=== PATIENT | male | born 1975 | race Caucasian/White ===

== ENCOUNTER 2022-02-27 14:35 | Outpatient (CLI) | payer OTHER, SELFPAY ==
[2022-02-27 17:43] LABS: Chloride* 99 mmol/L (96-114); Potassium* 4.7 mmol/L (3.6-5.1); Sodium* 138 mmol/L (135-149)
[2022-02-27 17:46] LABS: Blood Urea Nitrogen* 17 mg/dL (5-24); Calcium* 10.1 mg/dL (8.4-10.6); Carbon Dioxide* 29 mmol/L (20-32); Creatinine* 0.8 mg/dL (0.5-1.5); Estimated Glomerular Filt Rate 110 ml/min; Glucose* 91 mg/dL (60-115)
== END 2022-02-27 14:36 | disposition home or self-care (01) ==
PROVIDERS: PCP Family Medicine; Visit Provider Family Medicine
DX: Z01.818 Encounter for other preprocedural examination (principal); Z86.14 Personal history of Methicillin resistant Staphylococcus aureus infection
CPT/HCPCS: 80048; 87081

== ENCOUNTER 2022-07-19 19:27 | Outpatient (CLI) | payer OTHER, SELFPAY ==
--- NOTE | 2022-08-01 12:29 | P.SLS_ITS ---
Sleep Study Details Details Interpreting Provider: Jennifer Date of Sleep Study: 07/19/22 Sleep Study Details: STUDY TYPE:? Home ? BMI:? 31.2 ORDERING PROVIDER:Lauren Rodriguez INDICATION:? Concerns about sleep apnea ? SLEEP SUMMARY:? 371 minutes monitored RESPIRATORY SUMMARY:? AHI 25.4, supine 27.7, right lateral 8.3 Low oxygen 73 25.5% of study oxygen less than 90% Snoring 9.3% PERIODIC LIMB MOVEMENTS OF SLEEP:? Not measured CARDIAC:? Range 55-117, mean 77.3 beats per minute IMPRESSION:? Moderate obstructive sleep apnea with supine position dependency bu t apnea present in all positions RECOMMENDATION: Treatment options include AutoSet CPAP pressure 4-17 or dental appliance.
== END 2022-07-19 19:28 | disposition home or self-care (01) ==
LOC: SLEEP 19:28
PROVIDERS: PCP Family Medicine; Visit Provider Family Medicine
DX: G47.33 Obstructive sleep apnea (adult) (pediatric) (principal)
CPT/HCPCS: 95806

== ENCOUNTER 2023-03-06 15:07 | Outpatient (CLI) | payer OTHER, SELFPAY | END 2023-03-06 15:08 | disposition home or self-care (01) | LOC: LKVREF 15:08 | PROVIDERS: PCP Family Medicine; Visit Provider Family Medicine | DX: E78.2 Mixed hyperlipidemia (principal) | CPT/HCPCS: 80061 ==

== ENCOUNTER 2023-12-27 08:39 | Outpatient (CLI) | payer OTHER, SELFPAY ==
--- NOTE | 2023-12-27 09:34 | W.ANESCHARGE ---
Anesthesia Charges Start Date/Time Anesthesia Start Date: 12/27/23 Anesthesia Start Time: 09:57 Stop Date/Time Anesthesia Stop Date: 12/27/23 Anesthesia Stop Time: 10:21
--- NOTE | 2023-12-27 10:30 | W.ANESCHARGE ---
Anesthesia Charges Start Date/Time Anesthesia Start Date: 12/27/23 Anesthesia Start Time: 09:57 Stop Date/Time Anesthesia Stop Date: 12/27/23 Anesthesia Stop Time: 10:21
== END 2023-12-27 08:40 | disposition home or self-care (01) ==
LOC: OP CLINIC 08:40
PROVIDERS: PCP Family Medicine; Visit Provider Surgery
DX: Z12.11 Encounter for screening for malignant neoplasm of colon (principal)
CPT/HCPCS: 00811; 00812; 45378; J2704

== ENCOUNTER 2024-08-12 14:04 | Outpatient (CLI) | payer OTHER, SELFPAY | END 2024-08-12 14:05 | disposition home or self-care (01) | PROVIDERS: PCP Family Medicine; Visit Provider Family Medicine | DX: I10 Essential (primary) hypertension (principal); E78.2 Mixed hyperlipidemia; Z12.5 Encounter for screening for malignant neoplasm of prostate | CPT/HCPCS: 80053; 80061; 84403; G0103 ==